=== PATIENT | male | born 1960 | race Caucasian/White ===

== ENCOUNTER 2017-05-24 11:35 | Day surgery (SDC) | payer BC, OTHER ==
[2017-05-24] MEDS ORDERED: LACTATED RINGERS 1,000 ML IV ONE (12:13)
[2017-05-24] MEDS ORDERED: MIDAZOLAM 2 MG/2 ML VIAL IVP ONE (13:11)
[2017-05-24] MEDS ORDERED: fentaNYL 100 MCG/2 ML VIAL IVP ONE (13:11)
[2017-05-24 14:28] VITALS: BP 114/64
== END 2017-05-24 11:36 | disposition home or self-care (01) ==
LOC: SDS 11:35
PROVIDERS: ATTEND Surgery
PROC: 0DBL8ZX Excision of Transverse Colon, Via Natural or Artificial Opening Endoscopic, Diagnostic (ICD-10-PCS; principal; 2017-05-24 13:00)
DX: Z12.11 Encounter for screening for malignant neoplasm of colon (principal); K63.5 Polyp of colon; Z87.891 Personal history of nicotine dependence
CPT/HCPCS: 45380; J7120

== ENCOUNTER 2018-05-13 08:27 | Outpatient (CLI) | payer OTHER ==
--- NOTE | 2018-05-13 11:08 | CT Report ---
Reason: NICOTINE ADDICTION,IN REMISSION Procedure Date: 05/13/2018 Accession Number: [id number] / [id number] Procedure: CT - Chest/Lung Screen Low Dose W/O CPT Code: FULL RESULT: EXAM CT LUNG SCREEN EXAM DATE: 05/13/2018 08:45 AM. HISTORY: 58-year-old patient with [id number] smoking history. Currently smoking: No. Years since quitting: Within 15 years. COMPARISON: CHEST 2 VIEW PA/LAT 08/28/2016. TECHNIQUE: CT examination of the entire thorax without contrast was performed using low-dose technique. Thin section coronal, axial, sagittal and MIP axial images were obtained. In accordance with CT protocol optimization, one or more of the following dose reduction techniques were utilized for this exam: automated exposure control, adjustment of mA and/or KV based on patient size, or use of iterative reconstructive technique. FINDINGS: Nodules: Right upper lobe: None. Right middle lobe: None. Right lower lobe: Posteromedial right lower lobe calcified granuloma on series 4 image 107. Left upper lobe: None. Left lower lobe: None. Emphysema: Moderate centrilobular emphysema. Pleura: Unremarkable. Aorta: Unremarkable. Mediastinum: Unremarkable. Coronary calcifications: None. Other pulmonary findings: Probable biapical pleural and parenchymal scarring. Other extrapulmonary findings: Thoracic spine degenerative changes. IMPRESSION: Lung-RADS ASSESSMENT CATEGORY: 2 - benign appearance or behavior. Probability of malignancy: Less than 1%. RECOMMENDATION: Continue annual low-dose chest CT screening until no longer eligible for definitive therapy. [facility]
== END 2018-05-13 08:28 | disposition home or self-care (01) ==
LOC: DI 08:27
PROVIDERS: ATTEND Family Medicine
DX: Z12.2 Encounter for screening for malignant neoplasm of respiratory organs (principal); Z87.891 Personal history of nicotine dependence